=== PATIENT | male | born 1995 | race Caucasian/White ===

== ENCOUNTER 2019-04-19 15:54 | Emergency (ER) | payer OTHER ==
[2019-04-19 16:33] VITALS: BP 136/80
--- NOTE | 2019-04-19 16:39 | UC ---
Respiratory Complaint HPI - HPI Summary HPI Summary: Five days ago started with nasal congestion, runny nose and fatigued. Today feels worse. denies fever or sick contacts. will be travelling soon and does not want to be sick. - History of Current Complaint Chief Complaint: UCRespiratory Stated Complaint: CONGESTED Time Seen by Provider: 04/19/19 16:29 Hx Obtained From: Patient Pain Intensity: 4 Aggravating Factors: Nothing Alleviating Factors: Nothing - Allergies/Home Medications Allergies/Adverse Reactions: Allergies Allergy/AdvReac Type Severity Reaction Status Date / Time loratadine Allergy Swelling Verified 04/19/19 16:34 PMH/Surg Hx/FS Hx/Imm Hx - Additional Past Medical History Additional PMH: no chronic illness Previously Healthy: Yes Cardiovascular History: Other - arrythmia - Surgical History Surgical History: Yes Surgery Procedure, Year, and Place: appendicitis. bowel obstructions. hernia - Social History Alcohol Use: Weekly Alcohol Amount: twice Substance Use Type: Marijuana Substance Use Comment - Amount & Last Used: monthly Smoking Status (MU): Never Smoked Tobacco Review of Systems All Other Systems Reviewed And Are Negative: Yes Constitutional: Negative: Fever Skin: Negative: Rash Eyes: Negative: Drainage ENT: Positive: Nasal Discharge, Sinus Congestion, Sinus Pain/Tenderness. Negative: Sore Throat, Ear Ache Respiratory: Negative: Shortness Of Breath, Cough Cardiovascular: Positive: Negative Neurological: Negative: Headache Physical Exam Triage Information Reviewed: Yes Appearance: Well-Appearing Vital Signs: Initial Vital Signs Temp 98.6 F 04/19/19 16:26 Pulse 105 04/19/19 16:26 Resp 16 04/19/19 16:26 BP 136/80 04/19/19 16:26 Pulse Ox 100 04/19/19 16:26 Vital Signs Reviewed: Yes Eyes: Positive: Conjunctiva Clear ENT: Positive: Pharynx normal, TMs normal, Uvula midline. Negative: Nasal congestion, Nasal drainage, Hoarse voice, Sinus tenderness Neck: Positive: Supple, Nontender, No Lymphadenopathy Respiratory Exam: Normal Cardiovascular Exam: Normal Neurological: Positive: Alert Skin: Negative: Rashes Respiratory Course/Dx - Course Course Of Treatment: viral sinusitis ; acute. no indication for antibx. advised to flush with saline and when it starts to resolve ok to use flonase. afebrile. - Differential Dx/Diagnosis Differential Diagnosis/HQI/PQRI: Sinusitis, Other Provider Diagnosis: Viral sinusitis Discharge ED - Sign-Out/Discharge Documenting (check all that apply): Patient Departure All imaging exams completed and their final reports reviewed: No Studies - Discharge Plan Condition: Good Disposition: HOME Prescriptions: Fluticasone NASAL SPRAY 50MCG* [Flonase NASAL SPRAY 50MCG*] 2 spray BOTH NARES DAILY #1 btl Patient Education Materials: Sinusitis (ED) Referrals: No Primary Care Phys,NOPCP [Primary Care Provider] - - Billing Disposition and Condition Condition: GOOD Disposition: Home - Attestation Statements Provider Attestation: Patient not seen by me I was available for consult Chart reviewed ALFONSO
== END 2019-04-19 17:16 | disposition home or self-care (01) ==
LOC: UCEAST 15:54
DX: J32.9 Chronic sinusitis, unspecified (principal); Z88.8 Allergy status to other drugs, medicaments and biological substances
CPT/HCPCS: 99212; G0463